=== PATIENT | female | born 1985 | race Caucasian/White ===

== ENCOUNTER 2024-01-02 10:54 | Emergency (ER) | payer OTHER ==
[~2024-01-02] VITALS: Ht 157.5 cm; Wt 66.9 kg
[2024-01-02 11:00] VITALS: BP 118/64; TEMP 97.6; O2SAT 100
== END 2024-01-02 13:36 | disposition left against medical advice (07) ==
LOC: M ED 10:54
DX: Z53.21 Procedure and treatment not carried out due to patient leaving prior to being seen by health care provider (principal)

== ENCOUNTER → 2024-01-02 | Outpatient (CLI) | payer OTHER | LOC: M PLAIMG 08:49 | PROVIDERS: ATTEND Physician Assistant | DX: R51.9 Headache, unspecified (principal) ==